=== PATIENT | male | born 1970 | race Two or more races ===

== ENCOUNTER 2018-11-10 09:52 | Inpatient (IN) | payer OTHER ==
[2018-11-10 10:22] VITALS: BMI 28.6
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
[2018-11-10] MEDS ORDERED: MAGNESIUM HYDROX 2400MG/30ML ORAL SUSPENSION 30 ML CUP PO PRN (11:54)
[2018-11-10] MEDS ORDERED: guaiFENesin/D-METHORPHAN HB 10 ML UNIT-DOSE CUPS PO PRN (11:54)
[2018-11-10] MEDS ORDERED: diazePAM 5 MG TABLET PO PRN (11:54)
[2018-11-10] MEDS ORDERED: ACETAMINOPHEN 325 MG TABLET (FP) PO PRN (11:54)
[2018-11-10] MEDS ORDERED: MAG HYDROX/AL HYDROX/SIMETH 30 ML UNIT-DOSE CUP PO PRN (11:54)
[2018-11-10] MEDS ORDERED: MENTHOL/PHENOL 1 EACH UD MM PRN (11:54)
[2018-11-10] MEDS ORDERED: P-EPHED 60MG/TRIPROLIDI 2.5MG TABLET PO PRN (11:54)
[2018-11-10] MEDS ORDERED: MAGNESIUM CITRATE 300 ML BOTTLE PO PRN (11:54)
[2018-11-10] MEDS ORDERED: METHADONE HCL 10 MG TABLET (FOR DETOX USE ONLY) PO ONE ×2 (13:00→23:00)
[2018-11-10] MEDS: diazePAM 5 MG TABLET PO SCH ×2 (13:48→22:28)
[2018-11-10] MEDS: CLOTRIMAZOLE 1% CREAM 15 GM TUBE TP SCH ×2 (21:36→22:32)
[2018-11-10] MEDS: MELATONIN 5 MG TABLETS PO PRN (22:26)
[2018-11-10] MEDS: THIAMINE HCL 100 MG TABLET (FP) PO SCH (22:26)
[2018-11-10] MEDS: NICOTINE POLACRILEX 2 MG GUM BUC PRN (22:48)
[2018-11-11] MEDS: diazePAM 5 MG TABLET PO SCH ×3 (05:45→22:19)
[2018-11-11] MEDS ORDERED: METHADONE HCL 5 MG TABLET (FOR DETOX USE ONLY) PO SCH (10:00)
--- NOTE | 2018-11-11 10:23 | PN ---
S CIWA - CIWA Score Nausea/Vomitin-Mild Nausea/No Vomiting Muscle Tremors: 3 Anxiety: 3 Agitation: 3 Paroxysmal Sweats: 2 Orientation: 0-Oriented Tacttile Disturbances: 0-None Auditory Disturbances: 0-None Visual Disturbances: 0-None Headache: 0-None Present CIWA-Ar Total Score: 12 S COWS - Scale Resting Pulse: 0= [place] 80 or Below Sweatin=Flushed/Facial Moisture Restless Observation: 1= Difficult to Sit Still Pupil Size: 0= Normal to Room Light Bone or Joint Aches: 1= Mild Discomfort Runny Nose/ Eye Tearin= Nasal Congestion GI Upset > 30mins: 2= Nausea/Diarrhea Tremor Observation of Outstretched Hands: 2= Slight Tremor Visible Yawning Observation: 0= None Anxiety or Irritability: 2=Irritable/Anxious Goose Flesh Skin: 0=Smooth Skin COWS Score: 11 S Progress Note (SOAP) Subjective: PATIENT EVALUATED AT BEDSIDE. ANXIOUS, MILDLY RESTLESS AND GUARDED. PATIENT C/O NAUSEA, CHILLS AND SLEEP DISTURBANCE. Objective: 11/11/18 10:22 Vital Signs Temperature 97.3 F L 11/11/18 09:43 Pulse Rate 48 L 11/11/18 09:43 Respiratory Rate 17 11/11/18 09:43 Blood Pressure 102/65 11/11/18 09:43 O2 Sat by Pulse Oximetry (%) Laboratory Tests 11/10/18 12:29 HIV 1&2 Antibody Screen Negative HIV P24 Antigen Negative PE: ALERT AND ORIENTED X 3 SKIN WARM, +BODY SWEATS EXT FULL ROM, TREMORS VISIBLE ANXIOUS WITH RESTLESSNESS Assessment: 11/11/18 10:23 WITHDRAWAL SX Plan: CONTINUE DETOX ENCOURAGE ORAL FLUIDS CONTINUE TO MONITOR
[2018-11-11] MEDS: PRENATAL VITAMINS W/ FOLIC ACID TABLET (FP) PO SCH (10:27)
[2018-11-11] MEDS: CLOTRIMAZOLE 1% CREAM 15 GM TUBE TP SCH ×2 (10:27→22:41)
[2018-11-11 10:47] LABS: HEMATOCRIT 43.9 % (35.4-49); MCH 29.7 pg (25.7-33.7); MCHC 31.9 g/dl (32.0-35.9); MEAN CELL VOLUME 92.9 fl (80-96); MEAN PLT VOLUME 9.4 fl (7.5-11.1); PLATELET COUNT 151 K/MM3 (134-434); RBC 4.73 M/mm3 (4.00-5.60); RDW 12.8 % (11.9-15.9); WHITE BLOOD COUNT 10.6 K/mm3 (4.0-10.0)
[2018-11-11 11:05] LABS: ALK PHOS 76 U/L (45-117); ANION GAP 8 MMOL/L (8-16); BILIRUBIN,TOTAL 0.4 mg/dL (0.2-1); BLOOD UREA NITROGEN 13 mg/dL (7-18); CALCIUM 9.2 mg/dL (8.5-10.1); CHLORIDE 105 mmol/L (98-107); CO2 29 mmol/L (21-32); CREATININE 1.2 mg/dL (0.55-1.3); GLUCOSE,RANDOM 92 mg/dL (74-106); POTASSIUM 4.4 mmol/L (3.5-5.1); SGOT/AST 27 U/L (15-37); SGPT/ALT 31 U/L (13-61); SODIUM 142 mmol/L (136-145); TOT PROT 7.6 g/dl (6.4-8.2)
[2018-11-11] MEDS: HYDROCORTISONE 0.5% TOPICAL OINTMENT TUBE TP SCH ×2 (16:06→22:41)
[2018-11-11] MEDS: THIAMINE HCL 100 MG TABLET (FP) PO SCH (22:19)
[2018-11-11] MEDS: MELATONIN 5 MG TABLETS PO PRN (22:19)
[2018-11-12] MEDS: IBUPROFEN 400 MG TABLET (FP) PO PRN ×2 (01:46→14:12)
[2018-11-12] MEDS ORDERED: METHADONE HCL 10 MG TABLET (FOR DETOX USE ONLY) PO SCH (10:00)
[2018-11-12] MEDS: PRENATAL VITAMINS W/ FOLIC ACID TABLET (FP) PO SCH (10:16)
[2018-11-12] MEDS: diazePAM 5 MG TABLET PO SCH ×2 (10:17→22:04)
[2018-11-12] MEDS: HYDROCORTISONE 0.5% TOPICAL OINTMENT TUBE TP SCH ×2 (10:18→22:06)
[2018-11-12] MEDS: CLOTRIMAZOLE 1% CREAM 15 GM TUBE TP SCH ×2 (10:18→22:06)
--- NOTE | 2018-11-12 12:48 | PN ---
S CIWA - CIWA Score Nausea/Vomitin Muscle Tremors: 2 Anxiety: 2 Agitation: 2 Paroxysmal Sweats: 1-Minimal Palms Moist Orientation: 0-Oriented Tacttile Disturbances: 1-Very Mild Itch/Numbness Auditory Disturbances: 0-None Visual Disturbances: 0-None Headache: 2-Mild CIWA-Ar Total Score: 12 BHS COWS - Scale Resting Pulse: 0= [place] 80 or Below Sweatin= Chills/Flushing Restless Observation: 1= Difficult to Sit Still Pupil Size: 1= Pupils >than Normal Bone or Joint Aches: 2= Severe Diffuse Aches Runny Nose/ Eye Tearin= Runny Nose/Eyes GI Upset > 30mins: 2= Nausea/Diarrhea Tremor Observation of Outstretched Hands: 2= Slight Tremor Visible Yawning Observation: 1= 1-2x During Session Anxiety or Irritability: 1=Feels Anxious/Irritable Goose Flesh Skin: 0=Smooth Skin COWS Score: 13 S Progress Note (SOAP) Subjective: alert,irritable,anxious,intrerrupted sleep,pain in the body and back Objective: 11/12/18 12:47 Vital Signs Temperature 96.6 F L 11/12/18 09:31 Pulse Rate 51 L 11/12/18 09:31 Respiratory Rate 18 11/12/18 09:31 Blood Pressure 107/57 L 11/12/18 09:31 O2 Sat by Pulse Oximetry (%) 11/12/18 12:47 Laboratory Last Values WBC 10.6 K/mm3 (4.0-10.0) H 11/11/18 05:45 RBC 4.73 M/mm3 (4.00-5.60) 11/11/18 05:45 Hgb 14.0 GM/dL (11.7-16.9) 11/11/18 05:45 Hct 43.9 % (35.4-49) 11/11/18 05:45 MCV 92.9 fl (80-96) 11/11/18 05:45 MCH 29.7 pg (25.7-33.7) 11/11/18 05:45 MCHC 31.9 g/dl (32.0-35.9) L 11/11/18 05:45 RDW 12.8 % (11.9-15.9) 11/11/18 05:45 Plt Count 151 K/MM3 (134-434) 11/11/18 05:45 MPV 9.4 fl (7.5-11.1) 11/11/18 05:45 Sodium 142 mmol/L (136-145) 11/11/18 05:45 Potassium 4.4 mmol/L (3.5-5.1) 11/11/18 05:45 Chloride 105 mmol/L (98-107) 11/11/18 05:45 Carbon Dioxide 29 mmol/L (21-32) 11/11/18 05:45 Anion Gap 8 MMOL/L (8-16) 11/11/18 05:45 BUN 13 mg/dL (7-18) 11/11/18 05:45 Creatinine 1.2 mg/dL (0.55-1.3) 11/11/18 05:45 Creat Clearance w eGFR > 60 (>60) 11/11/18 05:45 Random Glucose 92 mg/dL (74-106) 11/11/18 05:45 Calcium 9.2 mg/dL (8.5-10.1) 11/11/18 05:45 Total Bilirubin 0.4 mg/dL (0.2-1) 11/11/18 05:45 AST 27 U/L (15-37) 11/11/18 05:45 ALT 31 U/L (13-61) 11/11/18 05:45 Alkaline Phosphatase 76 U/L (45-117) 11/11/18 05:45 Total Protein 7.6 g/dl (6.4-8.2) 11/11/18 05:45 Albumin 4.0 g/dl (3.4-5.0) 11/11/18 05:45 RPR Titer Nonreactive (NONREACTIVE) 11/11/18 05:45 HIV 1&2 Antibody Screen Negative 11/10/18 12:29 HIV P24 Antigen Negative 11/10/18 12:29 Assessment: 11/12/18 12:47 withdrawal symptom Plan: continue detox
--- NOTE | 2018-11-12 21:23 | PN ---
[facility] Progress Note (SOAP) Subjective: States "I caught a fungus when I was at [facility]". Now my foot is bleeding and hurts. Objective: A & O. Layers of skin absent from inner area between toes at 3 and 4th and 4th and 5th toes of (R) foot. Skin is beefy red w/ sero-sanguinous drainage. No edema. Pedal pulses (+). Cap refill < 3 sec. No lesions in other toes or on other foot. Vital Signs 11/12/18 11/12/18 11/13/18 18:09 21:19 00:30 Temperature 97.1 F L 97.8 F Pulse Rate 64 61 Respiratory 16 16 18 Rate Blood Pressure 124/60 118/70 Laboratory Last Values WBC 10.6 K/mm3 (4.0-10.0) H 11/11/18 05:45 RBC 4.73 M/mm3 (4.00-5.60) 11/11/18 05:45 Hgb 14.0 GM/dL (11.7-16.9) 11/11/18 05:45 Hct 43.9 % (35.4-49) 11/11/18 05:45 MCV 92.9 fl (80-96) 11/11/18 05:45 MCH 29.7 pg (25.7-33.7) 11/11/18 05:45 MCHC 31.9 g/dl (32.0-35.9) L 11/11/18 05:45 RDW 12.8 % (11.9-15.9) 11/11/18 05:45 Plt Count 151 K/MM3 (134-434) 11/11/18 05:45 MPV 9.4 fl (7.5-11.1) 11/11/18 05:45 Sodium 142 mmol/L (136-145) 11/11/18 05:45 Potassium 4.4 mmol/L (3.5-5.1) 11/11/18 05:45 Chloride 105 mmol/L (98-107) 11/11/18 05:45 Carbon Dioxide 29 mmol/L (21-32) 11/11/18 05:45 Anion Gap 8 MMOL/L (8-16) 11/11/18 05:45 BUN 13 mg/dL (7-18) 11/11/18 05:45 Creatinine 1.2 mg/dL (0.55-1.3) 11/11/18 05:45 Creat Clearance w eGFR > 60 (>60) 11/11/18 05:45 Random Glucose 92 mg/dL (74-106) 11/11/18 05:45 Calcium 9.2 mg/dL (8.5-10.1) 11/11/18 05:45 Total Bilirubin 0.4 mg/dL (0.2-1) 11/11/18 05:45 AST 27 U/L (15-37) 11/11/18 05:45 ALT 31 U/L (13-61) 11/11/18 05:45 Alkaline Phosphatase 76 U/L (45-117) 11/11/18 05:45 Total Protein 7.6 g/dl (6.4-8.2) 11/11/18 05:45 Albumin 4.0 g/dl (3.4-5.0) 11/11/18 05:45 RPR Titer Nonreactive (NONREACTIVE) 11/11/18 05:45 HIV 1&2 Antibody Screen Negative 11/10/18 12:29 HIV P24 Antigen Negative 11/10/18 12:29 Labs reviewed. Assessment: Lesions (R) foot. Plan: Start on Keflex Silvadene between toes at 4th and 5th toes BID and the apply dry dressing between toes and the cover with w/dry dressing. Encouraged to keep feet dry. Stop bacitracin.
[2018-11-12] MEDS ORDERED: BACITRACIN 0.9 GM PACKET TP SCH (22:00)
[2018-11-12] MEDS: CEPHALEXIN MONOHYDRATE 500 MG CAPSULE (UD) PO SCH ×2 (22:04→23:00)
[2018-11-12] MEDS: THIAMINE HCL 100 MG TABLET (FP) PO SCH (22:04)
[2018-11-12] MEDS: MELATONIN 5 MG TABLETS PO PRN (22:06)
[2018-11-12] MEDS: NICOTINE POLACRILEX 2 MG GUM BUC PRN (22:46)
[2018-11-13] MEDS: CEPHALEXIN MONOHYDRATE 500 MG CAPSULE (UD) PO SCH ×4 (05:08→23:09)
[2018-11-13] MEDS ORDERED: METHADONE HCL 5 MG TABLET (FOR DETOX USE ONLY) PO SCH (06:00)
[2018-11-13] MEDS: PRENATAL VITAMINS W/ FOLIC ACID TABLET (FP) PO SCH (10:21)
[2018-11-13] MEDS: diazePAM 5 MG TABLET PO SCH ×2 (10:22→22:25)
[2018-11-13] MEDS: SILVER SULFADIAZINE 1% TOP CREAM 50 GM JAR TP SCH ×2 (10:22→22:24)
[2018-11-13] MEDS: HYDROCORTISONE 0.5% TOPICAL OINTMENT TUBE TP SCH ×2 (10:22→22:25)
--- NOTE | 2018-11-13 16:13 | PN ---
[facility] Progress Note (SOAP) Subjective: Anxious, restless, agitated Objective: 11/13/18 16:12 Last Vital Signs Temp Pulse Resp BP Pulse Ox 97.9 F 60 20 100/64 11/13/18 13:48 11/13/18 13:48 11/13/18 13:48 11/13/18 13:48 Laboratory Tests 11/10/18 11/11/18 11/11/18 12:29 05:45 05:45 WBC 10.6 H RBC 4.73 Hgb 14.0 Hct 43.9 MCV 92.9 MCH 29.7 MCHC 31.9 L RDW 12.8 Plt Count 151 MPV 9.4 Sodium 142 Potassium 4.4 Chloride 105 Carbon Dioxide 29 Anion Gap 8 BUN 13 Creatinine 1.2 Creat Clearance w eGFR > 60 Random Glucose 92 Calcium 9.2 Total Bilirubin 0.4 AST 27 ALT 31 Alkaline Phosphatase 76 Total Protein 7.6 Albumin 4.0 RPR Titer HIV 1&2 Antibody Screen Negative HIV P24 Antigen Negative 11/11/18 05:45 WBC RBC Hgb Hct MCV MCH MCHC RDW Plt Count MPV Sodium Potassium Chloride Carbon Dioxide Anion Gap BUN Creatinine Creat Clearance w eGFR Random Glucose Calcium Total Bilirubin AST ALT Alkaline Phosphatase Total Protein Albumin RPR Titer Nonreactive HIV 1&2 Antibody Screen HIV P24 Antigen Labs reviewed Assessment: 11/13/18 16:13 Withdrawal symptoms Plan: Continue detox Encouraged PO water intake
[2018-11-13] MEDS: THIAMINE HCL 100 MG TABLET (FP) PO SCH (22:25)
[2018-11-13] MEDS: MELATONIN 5 MG TABLETS PO PRN (22:25)
[2018-11-13] MEDS: IBUPROFEN 400 MG TABLET (FP) PO PRN (22:27)
[2018-11-14] MEDS: CEPHALEXIN MONOHYDRATE 500 MG CAPSULE (UD) PO SCH (05:32)
[2018-11-14 09:07] VITALS: BP 126/81; PULSE 60; TEMP 96.6
[2018-11-14] MEDS ORDERED: diazePAM 5 MG TABLET PO SCH (10:00)
[2018-11-14] MEDS: PRENATAL VITAMINS W/ FOLIC ACID TABLET (FP) PO SCH (10:35)
[2018-11-14] MEDS: SILVER SULFADIAZINE 1% TOP CREAM 50 GM JAR TP SCH (10:36)
[2018-11-14] MEDS: HYDROCORTISONE 0.5% TOPICAL OINTMENT TUBE TP SCH (10:37)
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
--- NOTE | 2018-11-14 19:01 | DS ---
[facility] Detox Discharge Summary Admission Date: 11/10/18 Discharge Date: 11/14/18 - History Additional Comments: Pt completed detox For discharge today Will continue aftercare at [facility] Pt anxious, in no acute danger Vital Signs Temperature 96.6 F L 11/14/18 09:06 Pulse Rate 60 11/14/18 09:06 Respiratory Rate 18 11/14/18 09:06 Blood Pressure 126/81 11/14/18 09:06 O2 Sat by Pulse Oximetry (%) - Physical Exam Results Vital Signs: Vital Signs Temperature 96.6 F L 11/14/18 09:06 Pulse Rate 60 11/14/18 09:06 Respiratory Rate 18 11/14/18 09:06 Blood Pressure 126/81 11/14/18 09:06 O2 Sat by Pulse Oximetry (%) Pertinent Admission Physical Exam Findings: withdrawal sx - Treatment Hospital Course: Detox Protocol Followed, Detoxed Safely, Responded well, Discharged Condition Good, Rehab Referral Accepted Patient has Accepted a Rehab Referral to: out patient at [facility] - Medication Discharge Medications: Ambulatory Orders NK [No Known Home Medication] 11/10/18 - Diagnosis (1) Alcohol dependence with uncomplicated withdrawal Status: Acute (2) Opioid dependence with withdrawal Status: Acute (3) Weight loss Status: Acute (4) Cocaine dependence Status: Chronic (5) Eczema Status: Chronic Qualifiers: Eczema type: flexural Qualified Code(s): L20.82 - Flexural eczema (6) Nicotine dependence Status: Chronic Qualifiers: Nicotine product type: cigarettes Substance use status: in withdrawal Qualified Code(s): F17.213 - Nicotine dependence, cigarettes, with withdrawal (7) Schizoaffective disorder Status: Chronic (8) Fungal infection right foot Status: Acute - AMA Did Patient Leave Against Medical Advice: No
== END 2018-11-14 12:12 | disposition home or self-care (01) | DRG 773 ==
LOC: YASAS 09:52 → Y3N 12:40
PROC: HZ2ZZZZ Detoxification Services for Substance Abuse Treatment (ICD-10-PCS; principal; 2018-11-10)
DX: F11.23 Opioid dependence with withdrawal (principal); F10.230 Alcohol dependence with withdrawal, uncomplicated; F14.20 Cocaine dependence, uncomplicated; F17.213 Nicotine dependence, cigarettes, with withdrawal; F25.9 Schizoaffective disorder, unspecified; B35.1 Tinea unguium; L20.82 Flexural eczema; L98.9 Disorder of the skin and subcutaneous tissue, unspecified
CPT/HCPCS: 36415; 80053; 85027; 86593; 87389